=== PATIENT | male | born 1990 | race Caucasian/White ===

== ENCOUNTER 2020-10-30 01:21 | Emergency (ER) | payer MEDICAID, SELFPAY ==
[2020-10-30 01:45] VITALS: BP 129/85; PULSE 100; RESP 18; TEMP 36.3; O2SAT 97; BMI 23.5
--- NOTE | 2020-10-30 01:48 | XR_ITS ---
EXAMINATION: XR LUMBOSACRAL SPINE CLINICAL INFORMATION: Pain, fall COMPARISON: 11/11/2019 TECHNIQUE: Three views of the lumbosacral spine. FINDINGS: There is anatomic alignment of the lumbar vertebral bodies and posterior elements. Vertebral body heights and intervertebral disc spaces are maintained. No acute fracture is seen. Sacroiliac joints are intact. XR/XR lumbar spine 2-3V IMPRESSION: No acute findings.
--- NOTE | 2020-10-30 01:48 | XR_ITS ---
EXAMINATION: XR SHOULDER, RIGHT XR HUMERUS, RIGHT CLINICAL INFORMATION: Fall, pain COMPARISON: None TECHNIQUE: 3 views of the right shoulder. 2 views of the right humerus. FINDINGS: Glenohumeral alignment is anatomic. No acute fracture is identified in the shoulder or humerus. Acromioclavicular joint is intact. Alignment at the elbow appears anatomic on these views. XR/XR shoulder RT min 2V IMPRESSION: No acute findings identified in the right shoulder or humerus.
--- NOTE | 2020-10-30 01:48 | XR_ITS ---
EXAMINATION: XR WRIST, RIGHT CLINICAL INFORMATION: Fall COMPARISON: None TECHNIQUE: Four views of the right wrist. FINDINGS: Osseous alignment is anatomic. No acute fracture is seen. No significant focal soft tissue abnormality identified. XR/XR wrist RT min 3V IMPRESSION: No acute findings identified.
--- NOTE | 2020-10-30 01:48 | XR_ITS ---
EXAMINATION: XR SHOULDER, RIGHT XR HUMERUS, RIGHT CLINICAL INFORMATION: Fall, pain COMPARISON: None TECHNIQUE: 3 views of the right shoulder. 2 views of the right humerus. FINDINGS: Glenohumeral alignment is anatomic. No acute fracture is identified in the shoulder or humerus. Acromioclavicular joint is intact. Alignment at the elbow appears anatomic on these views. XR/XR humerus RT IMPRESSION: No acute findings identified in the right shoulder or humerus.
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
[2020-10-30] MEDS: Cyclobenzaprine HCl 10 MG TABLET PO (02:23)
[2020-10-30 02:53] VITALS: BP 122/78; PULSE 88; RESP 18; O2SAT 97
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
== END 2020-10-30 02:59 | disposition home or self-care (01) ==
LOC: HO.ED 02:47
PROVIDERS: Emergency Provider Emergency Medicine
DX: S63.501A Unspecified sprain of right wrist, initial encounter (principal); S39.012A Strain of muscle, fascia and tendon of lower back, initial encounter; S66.911A Strain of unspecified muscle, fascia and tendon at wrist and hand level, right hand, initial encounter; W10.8XXA Fall (on) (from) other stairs and steps, initial encounter; G89.11 Acute pain due to trauma; M25.511 Pain in right shoulder; Y93.E3 Activity, vacuuming; Y92.018 Other place in single-family (private) house as the place of occurrence of the external cause; Y99.9 Unspecified external cause status
CPT/HCPCS: 29125; 72100; 73030; 73060; 73110; 99283; 99284

== ENCOUNTER 2020-12-20 23:47 | Emergency (ER) | payer MEDICAID, SELFPAY | END 2020-12-21 03:28 | disposition left against medical advice (07) | PROVIDERS: Emergency Provider Emergency Medicine | DX: R09.81 Nasal congestion (principal) ==

== ENCOUNTER 2021-11-14 07:03 | Emergency (ER) | payer MEDICAID, SELFPAY ==
[2021-11-14 07:15] VITALS: BP 112/70; PULSE 85; RESP 18; TEMP 36.6; O2SAT 99; BMI 24.3
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
== END 2021-11-14 08:58 | disposition home or self-care (01) ==
PROVIDERS: Emergency Provider Emergency Medicine
DX: T20.15XA Burn of first degree of scalp [any part], initial encounter (principal); T31.0 Burns involving less than 10% of body surface; W86.1XXA Exposure to industrial wiring, appliances and electrical machinery, initial encounter; Y93.84 Activity, sleeping; Y92.039 Unspecified place in apartment as the place of occurrence of the external cause; Y99.9 Unspecified external cause status
CPT/HCPCS: 99283

== ENCOUNTER 2023-09-15 11:45 | Outpatient (REF) | payer MEDICAID, SELFPAY ==
--- NOTE | ~2023-09-15 | XR_ITS ---
EXAMINATION: XR CHEST CLINICAL INFORMATION: Lower extremity edema increased dyspnea on exertion COMPARISON: Chest radiograph from 03/30/2018 TECHNIQUE: 2 views of the chest were obtained. FINDINGS: Slight bibasilar atelectasis. No pneumothorax. Trachea is midline. Cardiac mediastinal silhouette is not enlarged. No large pleural effusion. Osseous structures are intact. Soft tissues are unremarkable. XR/XR chest 2V IMPRESSION: Slight bibasilar atelectasis.
== END 2023-09-15 11:46 | disposition home or self-care (01) ==
LOC: HO.HHCX 11:45
PROVIDERS: Visit Provider Emergency Medicine
DX: R06.02 Shortness of breath (principal); R60.0 Localized edema
CPT/HCPCS: 36415; 71046; 80053; 83880; 84443; 85025; 86038

== ENCOUNTER 2023-09-15 12:23 | Outpatient (REF) | payer MEDICAID, SELFPAY ==
[2023-09-15 13:47] LABS: Basophils Percent Auto 0.4 % (0-2); Eosinophils Absolute Auto 0.3 X10*3/uL (0.0-0.4); Eosinophils Percent Auto 2.5 % (0-4); Hematocrit 38.5 % (42.0-52.0); Imm Gran Abs Auto 0.03 X10*3/uL (0.00-0.03); Imm Gran Pct Auto 0.3 % (0.0-0.4); Lymphocytes Absolute Auto 2.5 X10*3/uL (1.2-4.9); Lymphocytes Percent Auto 23.1 % (20-40); MANUAL DIFF FLAG NO; Mean Corpuscular HGB Conc 31.2 g/dl (31.0-36.0); Mean Corpuscular Hemoglobin 25.8 pg (27.0-33.0); Mean Corpuscular Volume 82.6 fL (80.0-98.0); Mean Platelet Volume 10.5 fL (9.4-12.4); Monocytes Absolute Auto 0.8 X10*3/uL (0.1-1.2); Monocytes Percent Auto 7.6 % (2-11); Neutrophils Absolute Auto 7.2 x10*3/uL (2.0-8.3); Neutrophils Percent Auto 66.1 % (45-73); Platelet Count 326 X10*3/uL (160-400); Red Blood Count 4.66 X10*6/uL (4.60-5.80); Red Cell Distribution Width 14.5 % (11.0-16.0); White Blood Count 10.9 X10*3/uL (4.8-10.8)
[2023-09-15 14:27] LABS: B Type Natriuretic Peptide 141 pg/mL (<100)
[2023-09-15 14:32] LABS: Alanine Aminotransferase 78 U/L (0-40); Albumin Level 3.9 g/dL (3.5-5.0); Alkaline Phosphatase 133 U/L (39-117); Anion Gap 14 (12-20); Aspartate Amino Transferase 57 U/L (5-37); Bilirubin Total 0.6 mg/dL (0.0-1.0); Blood Urea Nitrogen 8 mg/dL (9-16); Calcium 9.5 mg/dL (8.4-10.2); Carbon Dioxide 27 mmol/L (22-29); Chloride 104 mmol/L (96-108); Estimated Glomerular Filt Rate > 60; Glucose Random 103 mg/dL (60-115); Potassium 4.2 mmol/L (3.3-5.1); Sodium 141 mmol/L (135-145); Total Protein 7.5 g/dL (6.5-8.0)
[2023-09-15 14:47] LABS: TSH reflex Free T4 2.28 uIU/mL (0.32-4.0)
[2023-09-17 11:53] LABS: Anti Nuclear Antibody Screen NEGATIVE (NEGATIVE)
== END 2023-09-15 12:24 | disposition home or self-care (01) ==
LOC: HO.LAB 12:23
PROVIDERS: Visit Provider Emergency Medicine
DX: R60.0 Localized edema (principal)
CPT/HCPCS: 36415; 80053; 83880; 84443; 85025; 86038

== ENCOUNTER 2023-09-22 12:22 | Outpatient (REF) | payer MEDICAID, SELFPAY ==
[2023-09-22 13:43] LABS: D Dimer High Sensitivity 461 NG/ML
[2023-09-22 13:57] LABS: Appearance Urine Clear; Color Urine Yellow; Glucose Urine UA Negative (Negative); Leukocyte Esterase Urine Negative (Negative); Nitrite Urine Negative (Negative); Specific Gravity - Urine 1.025 (1.005-1.025); Urine Blood Negative (Negative); Urine Ketones Negative (Negative); Urine Protein Negative (Neg-Trace)
== END 2023-09-22 12:23 | disposition home or self-care (01) ==
LOC: HO.LAB 12:22
PROVIDERS: Visit Provider Emergency Medicine
DX: R60.0 Localized edema (principal); R06.02 Shortness of breath
CPT/HCPCS: 36415; 81003; 85379

== ENCOUNTER 2023-09-22 14:57 | Emergency (ER) | payer MEDICAID, SELFPAY ==
--- NOTE | ~2023-09-22 | CT_ITS ---
EXAMINATION: CT ANGIOGRAM OF THE CHEST WITH AND WITHOUT CONTRAST (CT PULMONARY ANGIOGRAM FOR PE) CLINICAL INFORMATION: Reason for Exam chest pain, elevated ddimer COMPARISON: Chest radiograph 09/15/2023 TECHNIQUE: Prior to contrast administration, noncontrast localization images were obtained. Subsequently, multidetector volumetric imaging was performed from the thoracic inlet to below the diaphragms following the administration of 65 mL Omnipaque 350 intravenous contrast. No contrast reaction reported Sagittal, coronal, and MIP oblique sagittal reformatted images were obtained on the CT workstation, uploaded to PACS, and reviewed. This CT examination was performed using dose optimization techniques as appropriate, variously including the following: *Automated exposure control *Adjustment of mA and/or kV according to patient size (this includes techniques or standardized protocols for targeted exams where dose is matched to indication/reason for exam; i.e. extremities or head) *Use of iterative reconstruction technique Total exam dose-length product 232 mGy-cm FINDINGS: QUALITY OF STUDY/CONTRAST BOLUS: Satisfactory. PULMONARY ARTERIES: No pulmonary emboli. THORACIC AORTA: No aneurysm. LUNG: No focal consolidation, nodules or masses. PLEURA: No pleural effusion or pneumothorax. MEDIASTINUM: Normal heart size. No pericardial effusion. No hilar or mediastinal lymphadenopathy. No evidence of septal bowing or right heart strain. CORONARY ARTERY CALCIFICATION: None visualized on this study. CHEST WALL/AXILLA: No axillary or internal mammary lymphadenopathy. Mild gynecomastia. OSSEOUS STRUCTURES: No acute or suspicious osseous abnormality. UPPER ABDOMEN: There is hepatic steatosis. No reflux of contrast into the hepatic veins to suggest elevated right heart pressures. CT/CT angio chest PE protocol IMPRESSION: 1. No pulmonary emboli. 2. No acute pulmonary disease. 3. Hepatic steatosis. VTE: negative.
[2023-09-22 15:31] VITALS: BP 136/76; PULSE 72; RESP 20; TEMP 36.2; O2SAT 98; BMI 32.5
--- NOTE | 2023-09-22 16:50 | ECG_ITS ---
Test Reason : abn labs Blood Pressure : / mmHG Vent. Rate : 069 BPM Atrial Rate : 069 BPM P-R Int : 144 ms QRS Dur : 086 ms QT Int : 426 ms P-R-T Axes : 025 016 044 degrees QTc Int : 456 ms Normal sinus rhythm with sinus arrhythmia Normal ECG No previous ECGs available Referred By: Christine Cruz Electronically Signed By:SAVANA CORNELL MD
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
--- OUTSIDE RECORDS SUMMARY | 2023-09-22 17:35 | XMS_ITS | Continuity of Care Document ---
Author Name Unknown Organization [facility] ter Address [address] [place] [id number]- Care Team Providers Care Frame Operator Name Role Phone Porter Riggins MD, Megan Johns Primary Care Physici an [place] [facility] [place] 07/27/22 - 07/27/[address] [id number]- Encounter Diagnosis Lumbago(Final) - 07/27/22 Discharge Disposition: A-D/C Home Attending Physician: Mariola Paige MD Admitting Physician: Mariola Paige MD Referring Physician: Not on Staff, Referring MD Allergies, Adverse Reactions, Alerts No Known Medication Allergies Medications Dilaudid Inj 2 mg, Injection, IV Push Slowly, Once, STAT, 07/27/22 18:17:00 EDT, Stop date 07/27/22 18:17:00 EDT Start Date: 07/27/22 Stop Date: 07/27/22 Status: Completed Vital Signs Most recent to oldest [Reference Range]: 1 2 3 Height 173 cm (07/27/22 8:41 PM) 173 cm (07/27/22 4:42 PM) 173 cm (07/27/22 4:42 PM) Weight 163.5 kg (07/27/22 8:41 PM) 163.5 kg (07/27/22 4:42 PM) Oxygen Saturation [94-100 %] 98 % (07/27/22 4:42 PM) 100 % (07/27/22 4:19 PM) Pulse Rate [55-90 bpm] 86 bpm (07/27/22 4:42 PM) 96 bpm *H* (07/27/22 4:19 PM) Blood Pressure [90-138/55-84 mm Hg] 131/100mm Hg (07/27/22 4:42 PM) Respiratory Rate [16-30 br/min] 16 br/min (07/27/22 8:41 PM) 16 br/min (07/27/22 6:46 PM) 22 br/min (07/27/22 4:42 PM) Temperature [96.8-100.4 DegF] 98.7 DegF (07/27/22 4:42 PM) Mode of Delivery (Oxygen) Room air (07/27/22 4:42 PM) Room air (07/27/22 4:19 PM) Blood pressure sites Arm, right (07/27/22 4:42 PM) Temperature Route Oral (07/27/22 4:42 PM) Dry Weight 63.5 kg (07/27/22 8:41 PM) 63.5 kg (07/27/22 4:42 PM) 63.5 kg (07/27/22 4:42 PM) Weight Obtained Via Patient/family state d (07/27/22 4:42 PM) Dry Weight Obtained Via Patient/family s tated (07/27/22 4:42 PM) Patient Care team information Personnel Name: Porter Riggins MD, Megan Johns Address: Address: [address] [place] [address] [address] [place] [address]
--- OUTSIDE RECORDS SUMMARY | 2023-09-22 17:35 | XMS_ITS | Continuity of Care Document ---
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 elevated lipase and alk phos as outpatient - Follow final blood cultures ?? Hospital Course 32-year-old male with no significant past medical history other than??zurita which he sustained earlier this year presents today for acute on chronic low back pain,??afebrile, exam??negative for signsfor cord compression, labs with??chronic leukocytosis, elevated ESR, acute kidney injury, MRI spinewithout evidence of cord compression, showed possible mild compression fractures, admitted for further management. Pain improved with Tylenol. No alarm features. Leukocytosis downtrended and TAY resolved with fluids. D/w Neurosurgery, who stated no further follow up for mild compression fractures.??Ready for discharge home. Objective Assessment and Plan Acute on Chronic Low back pain No saddle anesthesia. ??No bowel bladder incontinence. ??No lower extremity weakness. MRI??lumbar??spine negative for cord compression, did show Subtle T4 and T5 superior endplate compression deformities with minimal edema, probably subacute - seen by PMR- may have mild compression fractures Pain more in lumbar region, unclear D/w Neurosurgery- no need for follow up, reviewed imaging Has been ambulating with ease Did not require oxycodone ?? Recs: - PCP follow up for referral for PT - Continue high dose acetaminophen - STOP NSAIDS, gabapentin- patient reports stomach upset - Patient does not want muscle relaxant - Will also rx lidocaine patch ?? Leukocytosis- improved Chronic in nature, has had prior Now downtrended Afebrile, does not use IVDU, no infection symptoms ?? Recs: - PCP to follow leukocytosis and final blood cultures ?May see hematology as an outpatient??for further work-up of leukocytosis and elevated ESR if inpatient work up is negative. ?? Acute kidney injury- resolved Lactic Acidosis- resolved At baseline patient's creatinine is 0.6 but presented with 1.9. Resolved with fluids, mild lactic acidosis also resolved likely related to NSAID use and dehydration (reports NSAIDs and pain meds cause vomiting) has mildly elevated lipase- no abdominal pain, denied alcohol use ?? Recs: - Avoid nephrotoxins, stop NSAIDS - Encouraged PO intake - Stop medications causing nausea - PCP to follow alk phos and lipase ? Measurements?? Height: 172.72 cm (08/23/22) Weight: 63.64 kg (08/22/22) Dry Weight: 63.64 kg (08/22/22) Body Mass Index: 21.33 kg/m2 (08/22/22) ? Vital Signs?? Temperature: 97.6 DegF (08/23/22 07:41:00) Temperature Route: Oral (08/23/22 07:41:00) Pulse Rate: 86 bpm (08/23/22 07:41:00) Respiratory Rate: 18 br/min (08/23/22 07:41:00) Systolic Blood Pressure: 109 mm Hg (08/23/22 07:41:00) Diastolic Blood Pressure: 84 mm Hg (08/23/22 07:41:00) Blood pressure sites: Arm, right (08/23/22 07:41:00) Mean Arterial Pressure: 92 mm Hg (08/23/22 07:41:00) Pulse Pressure: 25 mm Hg (08/23/22 07:41:00) Oxygen Saturation: 100 % (08/23/22 07:41:00) Mode of Delivery (Oxygen): Room air (08/23/22 07:41:00) Early Warning Score: 2 (08/23/22 07:41:41) ? . Physical Exam GENERAL:??In no apparent distress HEENT:??Head normocephalic, PERRL,Moist mucous membrane. Neck supple CARDIOVASCULAR:??Normal rate and rhythm, no murmurs, no rubs, no gallops RESPIRATORY:??Lungs clear to auscultation, no wheezes , no crackles ABDOMEN/GI:??Nondistended, soft, nontender, normal bowel sounds EXTREMITIES:??No ??pitting edema NEURO:??Alert and oriented x 3. Power 5/5 all extremities.?? Straight leg raising test negative. Sensation intact. tenderness lumbar region PSYCHIATRIC: Calm and co-operative HEME:??No??lymphadenopathy. SKIN: Warm and dry. Healing zurita on legs [facility] PMR Neurosurgery Pending Results Add On Lab Order ordered on 08/21/2022 Add On Lab Order ordered on 08/22/2022 Blood Culture ordered on 08/22/2022 Blood Culture #2 ordered on 08/22/2022 Patient Education Titles Back Pain (Acute or Chronic)?? Follow-Up Appointments Added Follow Up ?Time Frame ?Comments Porter Riggins MD, Megan Johns?1 week: call to discuss follow up visit Patient Instructions You were admitted with back pain MRI did now show any new changes, showed older changes that were discussed with Neurosurgery- no interventions or follow up Back pain improved Kidney function was elevated, improved with fluids Drink plenty of fluids at home Follow up with your PCP for further pain management and Physical Therapy referral Return if any fevers, weakness, numbness, loss of bowel or bladder control ?? Home Health Face to Face ^HomeHealthFTF Results Discharge Labs BLOOD COUNT & DIFF WBC 11.2 k/mm3 (High)?? 08/23/2022 05:23 RBC 4.35 m/mm3 (Low)?? 08/23/2022 05:23 Hgb 11.3 Gm/dL (Low)?? 08/23/2022 05:23 Hct 36.8 % (Low)?? 08/23/2022 05:23 MCV 84.6 femtoliters ()?? 08/23/2022 05:23 MCH 26.0 pg (Low)?? 08/23/2022 05:23 MCHC 30.7 g/dL (Low)?? 08/23/2022 05:23 Platelet Count 361 k/mm3 ()?? 08/23/2022 05:23 RDW-SD 46.4 femtoliters ()?? 08/23/2022 05:23 MPV 10.0 femtoliters ()?? 08/23/2022 05:23 Nucleated RBC (Automated) 0.0 #/100 WBC'S ()?? 08/23/2022 05:23 Abs. NRBC 0.0 k/mm3 ()?? 08/23/2022 05:23 Abs. Neut 16.1 k/mm3 (High)?? 08/21/2022 18:55 Abs. Lymph 3.1 k/mm3 ()?? 08/21/2022 18:55 Abs. [place] 2.1 k/mm3 (High)?? 08/21/2022 18:55 Abs. Eo 0.0 k/mm3 ()?? 08/21/2022 18:55 Abs. Baso 0.1 k/mm3 ()?? 08/21/2022 18:55 Neut % 74.7 % ()?? 08/21/2022 18:55 Lymph % 14.4 % (Low)?? 08/21/2022 18:55 [place] % 9.6 % ()?? 08/21/2022 18:55 Eos % 0.0 % ()?? 08/21/2022 18:55 Baso % 0.4 % ()?? 08/21/2022 18:55 RBC Morphology FEW ()?? 08/21/2022 18:55 Imm Gran 0.9 % ()?? 08/21/2022 18:55 Abs. Imm Gran 0.2 k/mm3 ()?? 08/21/2022 18:55 ? CHEM GENERAL Sodium 140 mmol/L ()?? 08/23/2022 05:23 Potassium 4.9 mmol/L ()?? 08/23/2022 05:23 Chloride 105 mmol/L ()?? 08/23/2022 05:23 Bicarbonate Level 30 mmol/L (High)?? 08/23/2022 05:23 Anion Gap 5 ()?? 08/23/2022 05:23 Glucose Level 83 mg/dL ()?? 08/23/2022 05:23 BUN 13 mg/dL ()?? 08/23/2022 05:23 Creatinine-Blood 0.7 mg/dL ()?? 08/23/2022 05:23 Estimated GFR Creatinine 127 ML/MIN/1.73 M2 ()?? 08/23/2022 05:23 Calcium 8.7 mg/dL ()?? 08/23/2022 05:23 Protein, Total 8.4 Gm/dL (High)?? 08/21/2022 18:55 Albumin 5.2 Gm/dL (High)?? 08/21/2022 18:55 Alkaline Phosphatase 135 units/L (High)?? 08/21/2022 18:55 Lipase 64 units/L (High)?? 08/21/2022 18:55 AST (SGOT) 17 units/L ()?? 08/21/2022 18:55 ALT (SGPT) 16 units/L ()?? 08/21/2022 18:55 Bilirubin, Total 0.9 mg/dL ()?? 08/21/2022 18:55 Bilirubin, Direct 0.2 mg/dL ()?? 08/21/2022 18:55 Bilirubin, Indirect 0.7 mg/dL ()?? 08/21/2022 18:55 Lactate 1.2 mmol/L ()?? 08/22/2022 01:59 C-Reactive Protein 0.4 mg/dL ()?? 08/21/2022 18:55 ? HEME OTHER Sed Rate 66 mm/hr (High)?? 08/21/2022 18:55 ? UA/URINALYSIS Appear/Color, Urine COLORLESS ()?? 08/22/2022 02:06 Specific Gray, Urine 1.010 ()?? 08/22/2022 02:06 pH, Urine 6.0 ()?? 08/22/2022 02:06 Albumin, Urine NEGATIVE ()?? 08/22/2022 02:06 Glucose, Urine NEGATIVE ()?? 08/22/2022 02:06 Ketones, Urine NEGATIVE ()?? 08/22/2022 02:06 Bilirubin, Urine NEGATIVE ()?? 08/22/2022 02:06 Hemoglobin, Urine NEGATIVE ()?? 08/22/2022 02:06 Nitrite, Urine NEGATIVE ()?? 08/22/2022 02:06 Leukocyte, Urine NEGATIVE ()?? 08/22/2022 02:06 Urobilinogen NORMAL mg/dL ()?? 08/22/2022 02:06 WBC's, Urine 1 /HPF ()?? 08/22/2022 02:06 RBC's, Urine 1 /HPF ()?? 08/22/2022 02:06 Squamous Epith <1 /HPF ()?? 08/22/2022 02:06 Hyaline Cast 1 LPF ()?? 08/22/2022 02:06 Mucus SLIGHT /LPF ()?? 08/22/2022 02:06 Hold Urine Culture Testing available 48 hours from time of collection. ()?? 08/22/2022 02:06 ? VIROLOGY COVID-19 POC Result NEGATIVE ()?? 08/21/2022 18:17 ? MRI LUMBAR AND THORACIC IMPRESSION: ?? Subtle T4 and T5 superior endplate compression deformities with minimal edema, probably subacute.?? Left facet arthropathy at L5-S1. Minimal degenerative change of the T8-T9 intervertebral disc with posterior annular fissure. ? 30??minutes spent on discharge * Ronald Levi RN: PERFORM Event Display: Patient Education/Instruction Authored Date: [id number] Inpatient Adult Discharge Instructions [address] [address] Name: CARLOS GAINES GERARD : 1990 Visit: 08/21/2022 17:38:00 Current Date: 08/23/2022 12:01 Account: [id number] Inpatient Adult Discharge Instructions We would like to thank you for allowing us to assist you with your healthcare needs. The following includes patient education materials and information regarding your injury/illness. Our entire staffstrives to provide an excellent experience for our patients and their families. PLEASE ENSURE YOU FOLLOW-UP PER THE INSTRUCTIONS BELOW! ?? YOUR OPINION IS IMPORTANT TO US! Please complete the survey you may receive by mail or email. Your feedback will be used to make improvements to the healthcare experiences of our patients and their families. Surveys are administered by [employer] ?? If further treatment with your primary care physician or another doctor is recommended, it is important for you to keep the appointment. Call your primary care physician or return to the Emergency Department immediately if your condition worsens, fails to improve, or new symptoms develop. If you need to find a doctor, you can call [facility] for a referral at [phone] or toll free at [phone] or log in to [email or web address] ?? You can view and manage your care through the patient portal or by using a health care alyse of your choosing. [employer] is a website that allows you to securely view your medical information including your hospital discharge summary, office visit summaries, medications and follow-up visits. You can also request appointments, renew medications, and request access to your medical information using a health care alyse of your choosing, or just ask a question. You can enroll at [email or web address] or register during your next office visit. You have been discharged from [facility], Patient Care Unit: D3B. If you have any questions regarding these instructions after you leave, please call us and we will be happy to assist you. [facility] Your Care Team Attending Physician Leonora Lao DO Consulting Providers Freddy Burnett MD Discharging Providers Leonora Lao DO Reason for Admission Back pain Tests Performed Below is a partial list of the tests performed during your hospitalization. You may have had other tests and procedures not included in this list. Please discuss all test results with your provider. Basic Metabolic Panel BUN C-REACTIVE PROTEIN Calcium Level CBC CBC w/ Differential COVID-19 RNA POC Creatinine Electrolytes Glucose Level HEPATIC FUNCTION PANEL Lactate Level Lactic Acid Level LIPASE SEDIMENTATION RATE,AUTOMATED Urinalysis w/hold for Urine Culture MRI Lumbar Spine W+W/O Contrast MRI Thoracic Spine W+W/O Contrast XR Chest 2 Views Frontal and Lat Primary Care Provider Megan Vu MD Advance Directive Health Care Proxy on File No Patient refuses to discuss No qualifying data available. Discharge Vitals Temperature: 97.6 DegF Height: 172.72 cm Pulse Rate: 86 bpm Weight: 63.64 kg Respiratory Rate: 18 br/min Body Mass Index: 21.33 kg/m2 Systolic Blood Pressure: 109 mm Hg Body surface area: 1.75 Diastolic Blood Pressure: 84 mm Hg ?? Oxygen Saturation: 100 % ?? Studies Pending All tests and labs ordered during this hospital stay have been completed unless listed below. Please discuss all pending results with your provider listed above in these instructions. ?? Add On Lab Order Blood Culture Blood Culture #2 What to do next Instructions From Your Doctor You were admitted with back pain MRI did now show any new changes, showed older changes that were discussed with Neurosurgery- no interventions or follow up Back pain improved Kidney function was elevated, improved with fluids Drink plenty of fluids at home Follow up with your PCP for further pain management and Physical Therapy referral Return if any fevers, weakness, numbness, loss of bowel or bladder control ?? Discharge Orders You Need to Schedule the Following Appointments Follow Up with??Megan Vu MD When??Within 1 week: call to discuss follow up visit Where: [address] [place] [address] [address] [place] [id number] Discharge Medications LIANA CARLOS GEE :1990 Visit Date:08/21/2022 Medications: Please continue your medications until treatment is completed or stopped by your provider. Medications not listed below should be discontinued. Discuss any questions related to medications with your provider. What How Much When Instructions Next Dose New Acetaminophen (Tylenol 325 mg oral tablet) 3 tab(s) Oral Every 8 hours as needed for Pain , Severe Duration: 14 Days Pickup at [facility] #[id number] anytime as needed New Lidocaine Topical (lidocaine 5% topical film) 1 patch(es) Topically Daily as needed for Pain , Mild Duration: 30 Days remove after 12 hours ?? Pickup at [facility] #[id number] tomorrow as needed Pharmacy Information [facility] #[id number]: [address], [place] [id number] [phone] ?? What How Much When Comments Stop Taking Gabapentin (gabapentin 600 mg oral tablet) 1 tab(s) Oral 3 times a day Stop Taking Ibuprofen (ibuprofen 800 mg oral tablet) 1 tab(s) Oral Every 8 hours Stop Taking Trazodone (traZODone 100 mg oral tablet) 1 tab(s) Oral Test Results Below is a partial list of the most recent Laboratory test results done prior to this discharge. You may have had other tests and procedures not included in this list. Please discuss all test resultswith your provider. Basic Metabolic Panel (08/21/2022) ???Sodium - 141 mmol/L???Potassium - 3.9 mmol/L???Chloride - 98 mmol/L???Bicarbonate Level - 25 mmol/L???Anion Gap - 18???Glucose Level - 99 mg/dL???BUN - 19 mg/dL???Creatinine-Blood - 1.9 mg/dL???Estimated GFR Creatinine - 49 ML/MIN/1.73 M2???Calcium - 9.6 mg/dL BUN (08/23/2022) ???BUN - 13 mg/dL C-REACTIVE PROTEIN (08/21/2022) ???C-Reactive Protein - 0.4 mg/dL Calcium Level (08/23/2022) ???Calcium - 8.7 mg/dL CBC (08/23/2022) ???WBC - 11.2 k/mm3???RBC - 4.35 m/mm3???Hgb - 11.3 Gm/dL???Hct - 36.8 %???MCV - 84.6 femtoliters???MCH - 26.0 pg???MCHC - 30.7 g/dL???Platelet Count - 361 k/mm3???RDW-SD - 46.4 femtoliters???MPV - 10.0 femtoliters???Nucleated RBC (Automated) - 0.0 #/100 WBC'S???Abs. NRBC - 0.0 k/mm3 CBC w/ Differential (08/21/2022) ???WBC - 21.6 k/mm3???RBC - 5.29 m/mm3???Hgb - 13.8 Gm/dL???Hct - 43.7 %???MCV - 82.6 femtoliters???MCH - 26.1 pg???MCHC - 31.6 g/dL???Platelet Count - 426 k/mm3???RDW-SD - 46.8 femtoliters???MPV - 9.4 femtoliters???Nucleated RBC (Automated) - 0.0 #/100 WBC'S???Abs. NRBC - 0.0 k/mm3???Abs. Neut - 16.1 k/mm3???Abs. Lymph - 3.1 k/mm3???Abs. [place] - 2.1 k/mm3???Abs. Eo - 0.0 k/mm3???Abs. Baso - 0.1 k/mm3???Neut % - 74.7 %???Lymph % - 14.4 %???[place] % - 9.6 %???Eos % - 0.0 %???Baso % - 0.4 %???RBC Morphology - FEW???Imm Gran - 0.9 %???Abs. Imm Gran - 0.2 k/mm3 COVID-19 RNA POC (08/21/2022) ???COVID-19 POC Result - NEGATIVE Creatinine (08/23/2022) ???Creatinine-Blood - 0.7 mg/dL???Estimated GFR Creatinine - 127 ML/MIN/1.73 M2 Electrolytes (08/23/2022) ???Sodium - 140 mmol/L???Potassium - 4.9 mmol/L???Chloride - 105 mmol/L???Bicarbonate Level - 30 mmol/L???Anion Gap - 5 Glucose Level (08/23/2022) ???Glucose Level - 83 mg/dL HEPATIC FUNCTION PANEL (08/21/2022) ???Protein, Total - 8.4 Gm/dL???Albumin - 5.2 Gm/dL???Alkaline Phosphatase - 135 units/L???AST (SGOT) - 17 units/L???ALT (SGPT) - 16 units/L???Bilirubin, Total - 0.9 mg/dL???Bilirubin, Direct - 0.2 mg/dL???Bilirubin, Indirect - 0.7 mg/dL Lactate Level (08/22/2022) ???Lactate - 2.2 mmol/L Lactic Acid Level (08/22/2022) ???Lactate - 1.2 mmol/L LIPASE (08/21/2022) ???Lipase - 64 units/L SEDIMENTATION RATE,AUTOMATED (08/21/2022) ???Sed Rate - 66 mm/hr Urinalysis w/hold for Urine Culture (08/22/2022) ???Appear/Color, Urine - COLORLESS???Specific Gray, Urine - 1.010???pH, Urine - 6.0???Albumin, Urine - NEGATIVE???Glucose, Urine - NEGATIVE???Ketones, Urine - NEGATIVE???Bilirubin, Urine - NEGATIVE???Hemoglobin, Urine - NEGATIVE???Nitrite, Urine - NEGATIVE???Leukocyte, Urine - NEGATIVE???Urobilin ogen - NORMAL? ?WBC's, Urine - 1 /HPF? ?RBC's, Urine - 1 /HPF? ?Squamous Epith - <1 /HPF? ?Hyaline Cast - 1 LPF???Mucus - SLIGHT???Hold Urine Culture - Testing available 48 hours from time of collection. Allergies (NKA means No Known Allergies) No Known Medication Allergies Problems No qualifying data available Education Materials Below is the list of Educational Leaflet Providered with your Discharge Instructions. Back Pain (Acute or Chronic)?? Valuables and Belongings I fully understand and agree that [facility] accepts no responsibility for all my personal property including clothing, toilet articles, radios, jewelry, dentures, hearing aids, rings, money, or any other property that is in my possession or is brought to me after admission. I understand certain valuables may be placed in a hospital safe for a short period of time. I understand that the hospital is not liable for loss or damage due to accident, fire, or other natural occurrence while said property is in the safe. I accept full responsibility for any personal property that I keep with me, and will not hold the hospital responsible in case of loss or disappearance. I acknowledge that i have been encouraged to send valuables and belongings home. ?? No Valuables/Belongings: No valuables/belongings present Date for Pt to Sign Valuables/Belongings: 08/22/22 08:17:00 ?? Other Discharge Information ? Pulmonary Rehab Status?? Pulmonary Rehab Discharge Status?? Respiratory Rate: 18 br/min ? Common Emergency Awareness Tips IS IT A STROKE? Act FAST and Check for these signs: FACE Does the face look uneven? ARM Does one arm drift down? SPEECH Does their speech sound strange? TIME Call at any sign of stroke ?? Heart Attack Signs Chest discomfort: Most heart attacks involve discomfort in the center of the chest and lasts more than a few minutes, or goes away and comes back. It can feel like uncomfortable pressure, squeezing, fullness or pain. Discomfort in upper body: Symptoms can include pain or discomfort in one or both arms, back, neck, jaw or stomach. Shortness of breath: With or without discomfort. Other signs: Breaking out in a cold sweat, nausea, or lightheaded. Remember, MINUTES DO MATTER. If you experience any of these heart attack warning signs, call to get immediate medical attention! ?? Smoking can increase your chances of developing chronic health problems and can cause harmful effects to other family members in your house. If you smoke, you are strongly encouraged to quit. Please call [facility] at [phone] or [phone]) or log in to [email or web address] for referrals to smoking cessation programs. ?? The National Suicide Prevention Hotline is available 28/04 if you or someone you know needs to find a reason to keep living. By calling 0-888-650-Socialcam (2723) you'll be connected to a skilled, trained counselor at a crisis center in your area. INPATIENT DISCHARGE INSTRUCTIONS SIGNATURE PAGE LIANA GEECARLOS Location:[facility] Registration Date and Time:08/21/2022 17:38 EST Primary Care Physician: Megan Vu MD, I CARLOS DENNIS, have received the above patient education materials/instructions and haveverbalized understanding. If ambulance or transport services are being used I further acknowledge being given a choice of service. ?? If you need to contact me, please call me at this number: . Patient/Veneer Joiner Name: Patient/Veneer Joiner Signature: Relationship to Patient: Witness Name/Signature: Date: * Leonora Lao DO: PERFORM Event Display: Patient Education Leaflets Authored Date: [id number] Back Pain (Acute or Chronic) ?? [id number] Back Pain (Acute or Chronic) Back pain is one of the most common problems. The good news is that most people feel better in 1 to2 weeks, and most of the rest in 1 to 2 months. Most people can remain active. People who have pain??describe it differently???not??everyone is the same. ??? The pain can be sharp, stabbing, shooting, aching, cramping or burning. ??? Movement, standing,bending, lifting, sitting, or walking may worsen pain. ??? It can be limited to one spot or area, or it can be more generalized. ??? It can spread upwards, to the front, or go down your arms or legs (sciatica). ??? It can cause muscle spasm. Most of the time, mechanical problems with the muscles??or spine cause the pain. Mechanical problems??are usually caused by an injury to the muscles or ligaments. Illness can cause back pain, but it's usually not caused by a serious illness. Mechanical problems include:? Physical activity such as sports, exercise, work, or normal activity ??? Overexertion, lifting,pushing, pulling incorrectly or too aggressively ??? Sudden twisting, bending, or stretching from an accident, or accidental movement ??? Poor posture ??? Stretching or moving wrong, without noticingpain at the time ??? Poor coordination, lack of regular exercise (check with your doctor about this) ??? Spinal disc disease or arthritis ??? Stress Pain can also be related to , or illness such as appendicitis, bladder or kidney infections, kidney stones, and pelvic infections. Acute back pain usually gets better in??1 to 2 weeks. Back pain related to disk disease, arthritis in the spinal joints, or narrowing of the spinal canal (spinal stenosis) can become chronic and lastfor months or years. Unless you had a physical injury such as a car accident or fall, X-rays are usually not needed for the first assessment of back pain. If pain continues and does not respond to medical treatment, you may need X-rays and other tests. Home care Try this home care advice: ??? When in bed, try??to find a position of comfort. A firm mattress is best. Try lying flat on your back with pillows under your knees. You can also try lying on your side with your knees bent up toward your chest and a pillow between your knees. ??? At first, don't try to stretch out the sore spots. If there is a strain, it's not like the good soreness you get after exercising without an injury. In this case, stretching may make it worse. ??? Don't sit for long periods, as in a long car ride or during other??travel. This puts more stress on the lower back than standing or walking. ??? During the first 24 to 72 hours after an acute injury or flare up of chronic back pain, apply an ice pack to the painful area for 20 minutes and then remove it for 20 minutes. Do this over a period of 60 to 90 minutes or several times a day. This will reduce swelling and pain. Wrap the ice pack in a thintowel or plastic to protect your skin. ??? You can start with ice, then switch to heat. Heat (hot shower, hot bath, or heating pad) reduces pain and works well for muscle spasms. Heat can be applied to the painful area for 20 minutes then remove it for 20 minutes. Do this over a period of 60 to 90 minutes or several times a day. Don't sleep on a heating pad. It can lead to skin zurita or tissue damage. ??? You can alternate ice and heat therapy. Talk with your doctor about??the best treatment for your back pain. ??? Therapeutic massage can help relax the back muscles without stretching them. ??? Be aware of safe lifting methods. Don't lift anything without stretching first. Medicines Talk to your doctor before using medicine, especially if you have other medical problems or are taking other medicines. ??? You may use [id number] medicine as directed on the bottle to control pain, unless another pain medicine was prescribed. Talk with your healthcare provider before using these medicines if you have chronic conditions such as diabetes, liver or kidney disease, stomach ulcers, or digestive bleeding. Also talk with your provider if you take blood thinners. ??? Be careful if you are given a prescription medicines, narcotics, or medicine for muscle spasms. They can cause drowsiness, affect your coordination, reflexes, and judgment. Don't drive or operate heavy machinery. ?? Follow-up care Follow up with your healthcare provider, or as advised.?? If X-rays were taken, you will be told of any new findings that may affect your care. ?? Call 911 Call 911 if any of the following occur: ??? Trouble breathing ??? Confusion ??? Very drowsy or trouble awakening ??? Fainting or loss of consciousness ??? Rapid or very slow heart rate ??? Loss of bowel or bladder control ??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
[2023-09-22 18:08] LABS: MANUAL DIFF FLAG NO
[2023-09-22 18:09] LABS: Basophils Absolute Auto 0.1 X10*3/uL (0.0-0.2); Basophils Percent Auto 0.5 % (0-2); Eosinophils Percent Auto 0.2 % (0-4); Hematocrit 41.1 % (42.0-52.0); Imm Gran Abs Auto 0.05 X10*3/uL (0.00-0.03); Imm Gran Pct Auto 0.4 % (0.0-0.4); Mean Corpuscular HGB Conc 31.6 g/dl (31.0-36.0); Mean Corpuscular Hemoglobin 25.7 pg (27.0-33.0); Mean Corpuscular Volume 81.2 fL (80.0-98.0); Mean Platelet Volume 9.2 fL (9.4-12.4); Monocytes Absolute Auto 0.6 X10*3/uL (0.1-1.2); Monocytes Percent Auto 5.2 % (2-11); Neutrophils Absolute Auto 9.4 x10*3/uL (2.0-8.3); Neutrophils Percent Auto 77.7 % (45-73); Platelet Count 401 X10*3/uL (160-400); Red Blood Count 5.06 X10*6/uL (4.60-5.80); Red Cell Distribution Width 14.6 % (11.0-16.0); White Blood Count 12.2 X10*3/uL (4.8-10.8)
[2023-09-22 18:23] LABS: Alanine Aminotransferase 47 U/L (0-40); Albumin Level 4.6 g/dL (3.5-5.0); Alkaline Phosphatase 128 U/L (39-117); Anion Gap 16 (12-20); Aspartate Amino Transferase 36 U/L (5-37); Bilirubin Direct 0.2 mg/dL (0.0-0.5); Bilirubin Total 0.6 mg/dL (0.0-1.0); Blood Urea Nitrogen 13 mg/dL (9-16); Calcium 9.8 mg/dL (8.4-10.2); Carbon Dioxide 25 mmol/L (22-29); Chloride 107 mmol/L (96-108); Creatinine Clr Calc Pharmacy 144.7; Estimated Glomerular Filt Rate > 60; Glucose Random 101 mg/dL (60-115); Potassium 3.8 mmol/L (3.3-5.1); Sodium 144 mmol/L (135-145); Total Protein 8.7 g/dL (6.5-8.0)
[2023-09-22 18:34] LABS: Troponin-I High Sensitivity < 2.7 ng/L (<3.5-35.0)
[2023-09-22 18:46] LABS: Influenza A PCR NEGATIVE (Negative); Influenza B PCR NEGATIVE (Negative); Resp Syncy Virus RNA Qual PCR NEGATIVE (Negative); SARS COV2 PCR INHOUSE NEGATIVE (Negative)
--- NOTE | 2023-09-22 23:56 | PC.NURSE ---
Pt presents to ED per request of his primary care to rule out PE. Pt has been having shortness of breath, ankle swelling, chest pain. Pt is A&Ox4, GCS 15, with warm dry skin. 20g IV placed above the wrist and pt was taken for CTA.
[2023-09-23] MEDS: iohexoL 350 MG/ML 100 ML INFUS..BTL 65 ML IV (00:06)
[2023-09-23 02:00] VITALS: BP 158/82; PULSE 65; RESP 16; TEMP 36.7; O2SAT 100
== END 2023-09-23 02:01 | disposition home or self-care (01) ==
PROVIDERS: Physician Assistant Medical; Emergency Provider Internal Medicine; PCP Internal Medicine
DX: R25.1 Tremor, unspecified (principal); R53.83 Other fatigue; R07.89 Other chest pain; I49.9 Cardiac arrhythmia, unspecified; Z20.822 Contact with and (suspected) exposure to COVID-19; Z20.828 Contact with and (suspected) exposure to other viral communicable diseases; Z79.899 Other long term (current) drug therapy
CPT/HCPCS: 0241U; 36415; 71275; 80048; 80076; 84484; 85025; 93005; 99284; Q9967

== ENCOUNTER → 2023-09-22 16:50 | Outpatient (BNV) | payer MEDICAID, SELFPAY | PROVIDERS: Emergency Provider Internal Medicine; PCP Internal Medicine; Visit Provider Internal Medicine Cardiovascular Disease | DX: I49.9 Cardiac arrhythmia, unspecified (principal) | CPT/HCPCS: 93010 ==

== ENCOUNTER 2023-10-17 14:16 | Outpatient (REF) | payer MEDICAID, SELFPAY ==
--- NOTE | ~2023-10-17 | XR_ITS ---
EXAMINATION: XR CHEST CLINICAL INFORMATION: Shortness of breath. Edema and lower legs. COMPARISON: CT chest September 22, 2023. Chest x-ray September 15, 2023 TECHNIQUE: 2 views of the chest were obtained. FINDINGS: Cardiac mediastinal contours are normal. Heart size is normal. There is no pulmonary vascular congestion. There is no pleural effusion or pneumothorax. XR/XR chest 2V IMPRESSION: Unremarkable examination.
== END 2023-10-17 14:17 | disposition home or self-care (01) ==
LOC: HO.HHCX 14:16
PROVIDERS: Visit Provider Emergency Medicine
DX: R60.0 Localized edema (principal)
CPT/HCPCS: 71046